=== PATIENT | male | born 1950 | race African-American/Black ===

== ENCOUNTER → 2020-03-28 | Outpatient (CLI) | payer MEDICARE ==
[~2020-03-28] MED LIST: AMLO-150 PO; INSU100I17 SQ; LISI-170 PO; LOVA20TA2 PO; METF500T17 PO; VITA100022 PO
[2020-03-28 11:28] LABS: BASOPHILS # (AUTO) 0.02 x10^3/uL (0-0.1); BASOPHILS % (AUTO) 0 % (0-1); EOSINOPHILS # (AUTO) 0.06 x10^3/uL (0-0.4); EOSINOPHILS % (AUTO) 1 % (1-7); LYMPHOCYTES % (AUTO) 35 % (22-44); MD NO; MEAN CORPUSCULAR HEMOGLOBIN 29.8 pg (27.5-34.5); MEAN CORPUSCULAR HGB CONC 32.6 g/dL (33.2-36.2); MEAN CORPUSCULAR VOLUME 91.6 fL (81-97); MEAN PLATELET VOLUME 8.7 fL (7.4-10.4); MONOCYTES # (AUTO) 0.47 x10^3/uL (0.2-0.8); MONOCYTES % (AUTO) 8 % (2-9); NEUTROPHILS # (AUTO) 3.22 x10^3/uL (1.8-6.8); NEUTROPHILS % (AUTO) 56 % (42-75); PLATELET COUNT 265 x10^3/uL (130-400); RED BLOOD COUNT 4.77 x10^6/uL (4.38-5.82); RED CELL DISTRIBUTION WIDTH 14.1 % (9.4-14.8)
[2020-03-28 11:40] LABS: ALANINE AMINOTRANSFERASE 19 U/L (12-78); ALBUMIN 4.2 g/dL (3.4-5.0); ANION GAP 3 mmol/L (5-15); CHLORIDE 109 mmol/L (98-107)
[2020-03-28 11:43] LABS: ALKALINE PHOSPHATASE 68 U/L (45-117); BILIRUBIN,TOTAL 0.4 mg/dL (0.2-1.0); CREATININE 0.85 mg/dL (0.7-1.3); TOTAL PROTEIN 7.8 g/dL (6.4-8.2)
== END | disposition home or self-care (01) ==
LOC: STAR 10:19
PROVIDERS: ATTEND Physician Assistant
DX: Z01.818 Encounter for other preprocedural examination (principal)
CPT/HCPCS: 36415; 80053; 85025; 93005

== ENCOUNTER 2020-03-30 10:56 | Outpatient (CLI) | payer MEDICARE ==
[2020-04-04] MEDS ORDERED: BUPIVACAINE/PF-EPI 0.5% 1:200K ONE (10:31)
== END 2020-03-30 23:59 | disposition home or self-care (01) ==
LOC: STAR 10:56
PROVIDERS: ATTEND Anesthesiology
DX: Z01.818 Encounter for other preprocedural examination (principal); Z11.59 Encounter for screening for other viral diseases
CPT/HCPCS: 36415; 87635

== ENCOUNTER → 2020-03-30 | Outpatient (CLI) | payer MEDICARE | END | disposition home or self-care (01) | LOC: PETCFH 08:38 | PROVIDERS: ATTEND Surgery | DX: C18.0 Malignant neoplasm of cecum (principal); K63.9 Disease of intestine, unspecified | CPT/HCPCS: 78815; A9552 ==

== ENCOUNTER 2020-05-02 06:21 | Day surgery (SDC) | payer MEDICARE ==
[~2020-05-02] VITALS: Ht 171.4 cm; Wt 88.4 kg
[~2020-05-02 06:21] MED LIST changes: +MUPI22OI2 EXT
[2020-05-02 06:45] VITALS: BP 148/86
[2020-05-02] MEDS ORDERED: BUPIVACAINE/PF 0.5% ONE (06:50)
[2020-05-02] MEDS ORDERED: HEPARIN 1,000 UNITS/ML, 10ML ONE (06:50)
[2020-05-02] MEDS ORDERED: LACTATED RINGERS 1,000 ML IV SCH (06:53)
[2020-05-02] MEDS ORDERED: CHLORHEXIDINE 15 ML UDC ONE (06:55)
[2020-05-02] MEDS ORDERED: CHLORHEXIDINE 15 ML UDC MM ONE (07:00)
[2020-05-02] MEDS ORDERED: FENTANYL PF 100 MCG/2ML ONE ×2 (07:15→08:46)
[2020-05-02] MEDS ORDERED: MIDAZOLAM 1 MG/ML, 2ML ONE (07:15)
[2020-05-02] MEDS ORDERED: DIPHENHYDRAMINE 50 MG/ML, 1ML IVPush PRN (07:30)
[2020-05-02] MEDS ORDERED: PROMETHAZINE 25 MG/ML, 1ML IVPush PRN (07:30)
[2020-05-02] MEDS ORDERED: HYDROcodone/APAP 7.5-325MG/15ML UDC PO PRN (07:30)
[2020-05-02] MEDS ORDERED: MEPERIDINE/PF 25MG/0.5ML IVPush PRN (07:30)
[2020-05-02] MEDS ORDERED: hydrALAzine 20 MG/ML, 1ML IV PRN (07:30)
[2020-05-02] MEDS ORDERED: HALOPERIDOL 5 MG/ML IV PRN (07:30)
[2020-05-02] MEDS ORDERED: HYDROmorphone 1 MG/ML, 1ML INJ IVPush PRN (07:30)
[2020-05-02] MEDS ORDERED: FENTANYL PF 100 MCG/2ML IV PRN (07:30)
[2020-05-02] MEDS ORDERED: LABETALOL 5MG/ML, 20ML IV PRN (07:30)
[2020-05-02] MEDS ORDERED: ONDANSETRON 2MG/ML, 2ML ONE (07:50)
[2020-05-02] MEDS ORDERED: DEXAMETHASONE 4 MG/ML, 1ML ONE (07:50)
[2020-05-02] MEDS ORDERED: CEFAZOLIN 1,000 MG ONE (07:50)
[2020-05-02] MEDS ORDERED: PROPOFOL 10 MG/ML, 20ML ONE (07:50)
[2020-05-02] MEDS ORDERED: HYDROcodone/APAP 7.5-325MG/15ML UDC ONE (08:46)
== END 2020-05-02 09:45 | disposition home or self-care (01) ==
LOC: OUT 06:21
PROVIDERS: ATTEND Surgery
DX: C18.9 Malignant neoplasm of colon, unspecified (principal); Z20.828 Contact with and (suspected) exposure to other viral communicable diseases; I10 Essential (primary) hypertension; E11.9 Type 2 diabetes mellitus without complications; E78.5 Hyperlipidemia, unspecified; M10.9 Gout, unspecified; F12.90 Cannabis use, unspecified, uncomplicated; Z79.4 Long term (current) use of insulin; Z79.899 Other long term (current) drug therapy; Z90.49 Acquired absence of other specified parts of digestive tract; Z98.890 Other specified postprocedural states; Z82.49 Family history of ischemic heart disease and other diseases of the circulatory system; Z82.5 Family history of asthma and other chronic lower respiratory diseases
CPT/HCPCS: 36561; 77001; 82962; 87635; C1788; J0690; J1100; J1644; J2250; J2405; J2704; J3010; J7120; 76000